=== PATIENT | female | born 1935 | race Asian ===

== ENCOUNTER 2018-09-13 10:42 | Emergency (ER) | payer MEDICARE, MEDICAID, OTHER ==
[~2018-09-13] VITALS: Ht 167.6 cm; Wt 68.0 kg
[2018-09-13 10:52] VITALS: Ht 167.6 cm; Wt 68.0 kg
[2018-09-13 12:33] VITALS: BP 154/83
== END 2018-09-13 12:44 | disposition home or self-care (01) ==
LOC: EDBD 10:42 → ED 10:42
DX: S20.219A Contusion of unspecified front wall of thorax, initial encounter (principal); R91.8 Other nonspecific abnormal finding of lung field; V48.6XXA Car passenger injured in noncollision transport accident in traffic accident, initial encounter; Y93.89 Activity, other specified; Y92.488 Other paved roadways as the place of occurrence of the external cause; Y99.8 Other external cause status
CPT/HCPCS: Q0092